=== PATIENT | female | born 1965 | race Asian ===

== ENCOUNTER 2020-07-24 17:57 | Emergency (ER) | payer SELFPAY ==
[2020-07-24 17:57] VITALS: BP 104/83; PULSE 85; RESP 16; TEMP 36.6; O2SAT 100; BMI 20.7
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
--- NOTE | 2020-07-24 18:45 | CM.ED ---
SOCIAL WORK Informant: Dr. Fitzgerald and nursing Reason for Consult: Resources/Discharge Planning Met with patient in room. Introduced role and reason for referral. Patient discussed living situation and states now has heat, water and electric as was able to get propane today. Patient reports she does not have insurance, but has Medicare and Medicaid. Patient states patient has had many health issues and fell today while carrying in supplies. Patient states is feeling much better. Patient states, I was just extremely cold, but I have warmed up. Discussed options for assistance. Patient states will follow up on Sunday. Plan: Home with resources provided Alyson Siegel MSW, PLANNING DIRECTOR
[2020-07-24 19:57] VITALS: BP 132/70; PULSE 60; RESP 15; O2SAT 97
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
[2020-07-24 20:14] VITALS: BP 128/79; PULSE 83; RESP 15; O2SAT 100
--- NOTE | 2020-07-24 20:15 | ED.RN ---
pt reports she is feeling warmed up and does not need any testing done. AMA paper signed per dr grullon. vss.
== END 2020-07-24 20:17 | disposition home or self-care (01) ==
PROVIDERS: Emergency Provider Emergency Medicine
DX: R55 Syncope and collapse (principal)
CPT/HCPCS: 99284